=== PATIENT | male | born 1955 | race African-American/Black ===

== ENCOUNTER 2022-07-21 06:26 | Emergency (ER) | payer MEDICARE, MEDICAID ==
[~2022-07-21] VITALS: Ht 188 cm; Wt 90.0 kg
[2022-07-21 06:28] VITALS: BP 208/107
[2022-07-21 07:50] LABS: BASOPHILS % 0.7 % (0.0-2.0); EOSINOPHILS % 1.8 % (0.0-5.0); HEMATOCRIT. 33.7 % (42.0-52.0); LYMPHOCYTES % 9.5 % (20.0-50.0); MEAN CORPUSCULAR HEMOGLOBIN 24.5 pg (28.0-32.0); MEAN CORPUSCULAR VOLUME 74.9 fL (80.0-94.0); MEAN PLATELET VOLUME 7.2 fl (7.4-10.4); MONOCYTES % 10.8 % (2.0-8.0); NEUTROPHILS % 77.2 % (40.0-76.0); PLATELET 216 x1000/uL (130-400); RED BLOOD CELL COUNT 4.49 mill/uL (4.7-6.1); RED CELL DISTRIBUTION WIDTH 18.1 % (11.6-14.6)
[2022-07-21 07:54] LABS: CHLORIDE 93 mEq/L (98-107)
== END 2022-07-21 09:36 | disposition home or self-care (01) ==
LOC: ER 06:43 → CANBEDREQ 07-23 07:24
DX: B34.9 Viral infection, unspecified (principal); R79.89 Other specified abnormal findings of blood chemistry; I12.0 Hypertensive chronic kidney disease with stage 5 chronic kidney disease or end stage renal disease; R00.0 Tachycardia, unspecified; R94.31 Abnormal electrocardiogram [ECG] [EKG]; N18.6 End stage renal disease; Z99.2 Dependence on renal dialysis; Z79.899 Other long term (current) drug therapy
CPT/HCPCS: 36415; 71045; 80053; 83880; 84484; 85025; 87804; 93005; 99285

== ENCOUNTER 2024-03-19 13:23 | Emergency (ER) | payer MEDICAID ==
[~2024-03-19] VITALS: Ht 185.4 cm; Wt 60.0 kg
[2024-03-19 13:30] VITALS: O2SAT 99
[2024-03-19] MEDS ORDERED: ACETAMINOPHEN 325MG TABLET PO ONE (13:30)
[2024-03-19] MEDS: ACETAMINOPHEN 325MG TABLET PO NR (16:12)
[2024-03-19 16:13] VITALS: BP 154/70; PULSE 70; RESP 16; TEMP 36.89184; O2SAT 99
== END 2024-03-19 16:13 | disposition home or self-care (01) ==
LOC: ER 13:23
DX: M25.562 Pain in left knee (principal); I12.0 Hypertensive chronic kidney disease with stage 5 chronic kidney disease or end stage renal disease; N18.6 End stage renal disease; Z99.2 Dependence on renal dialysis; Z98.890 Other specified postprocedural states
CPT/HCPCS: 29505; 73562; 99283

== ENCOUNTER 2024-03-28 13:08 | Inpatient (IN) | payer MEDICAID, MEDICARE ==
[~2024-03-28] VITALS: Ht 190.5 cm; Wt 89.9 kg
[~2024-03-28 13:08] MED LIST: AMLO5TAB88 PO; ATEN50TA PO; CLON0.1T PO; HYDR50TA40 PO
[2024-03-28] MEDS ORDERED: VANCOMYCIN 1G PREMIX 200 ML IV SCH (13:45)
[2024-03-28] MEDS: PIPERACILLIN/TAZO 3.375G/50ML 50 ML IV SCH (14:00)
[2024-03-28 14:53] LABS: BASOPHILS % 0.9 % (0.0-2.0); DIFFERENTIAL COMMENT 0; EOSINOPHILS % 7.6 % (0.0-5.0); HEMATOCRIT. 32.3 % (42.0-52.0); HEMOGLOBIN. 10.3 g/dL (14.0-18.0); LYMPHOCYTES % 17.1 % (20.0-50.0); MEAN CORPUSCULAR HGB CONC 31.8 g/dL (31.0-37.0); MEAN CORPUSCULAR VOLUME 78.7 fL (80.0-94.0); MEAN PLATELET VOLUME 7.3 fl (7.4-10.4); MONOCYTES % 11.4 % (2.0-8.0); PLATELET 307 x1000/uL (130-400)
[2024-03-28 15:02] LABS: POTASSIUM 5.4 mEq/L (3.5-5.1)
[2024-03-28 15:04] LABS: CALCIUM 9.3 mg/dL (8.7-10.4)
[2024-03-28] MEDS ORDERED: VANCOMYCIN 1G PREMIX 200 ML IV NR (15:30)
[2024-03-28] MEDS: VANCOMYCIN 1GM PMX (XELLIA) 200 ML IV NR (16:05)
[2024-03-28 16:32] LABS: CREATININE 9.8 mg/dL (0.6-1.3)
[2024-03-28 20:45] LABS: HEPATITIS B SURFACE ANTIGEN NEGATIVE (Negative)
[2024-03-28 21:05] LABS: HEPATITIS A AB IGM NEGATIVE (Negative)
[2024-03-28 21:06] LABS: HEPATITIS B CORE AB IGM NEGATIVE (Negative); HEPATITIS C AB REACTIVE (Pos) (Negative)
[2024-03-28] MEDS ORDERED: IOHEXOL-350 100 ML BOTTLE ONE (23:39)
[2024-03-29] VITALS (15 sets, daily range): BP systolic 90–210; BP diastolic 41–116; PULSE 62–78; RESP 16–21; TEMP 35.5584–36.55848; O2SAT 97–99
[2024-03-29] MEDS: CLONIDINE 0.2MG TABLET PO PRN ×2 (02:58→22:36)
[2024-03-29 07:08] LABS: POTASSIUM 5.7 mEq/L (3.5-5.1)
[2024-03-29 07:16] LABS: CREATININE 10.5 mg/dL (0.6-1.3)
[2024-03-29 07:21] LABS: INR 1.1; PARTIAL THROMBOPLASTIN TIME 29.8 sec (23.4-31.0); PROTHROMBIN TIME 11.9 sec (9.6-11.0)
[2024-03-29 07:23] LABS: HEMATOCRIT 30.5 % (42.0-52.0); HEMOGLOBIN 9.5 g/dL (14.0-18.0); MEAN CORPUSCULAR HEMOGLOBIN 24.3 pg (28.0-32.0); MEAN CORPUSCULAR HGB CONC 31.2 g/dL (31.0-37.0); MEAN CORPUSCULAR VOLUME 77.8 fL (80.0-94.0); PLATELET 298 x1000/uL (130-400); RED BLOOD CELL COUNT 3.92 mill/uL (4.7-6.1); RED CELL DISTRIBUTION WIDTH 18.9 % (11.6-14.6); WHITE BLOOD COUNT 6.4 x1000/uL (4.5-11.0)
[2024-03-29] MEDS: EPOETIN ALFA 2,000 UNIT/ML VIAL SUBCUT SCH (21:56)
[2024-03-29] MEDS ORDERED: ONDANSETRON HCL 4MG/2ML INJ IV PRN (23:45)
[2024-03-29] MEDS ORDERED: ZOLPIDEM TARTRATE 5MG TABLET PO PRN (23:45)
[2024-03-29] MEDS ORDERED: ACETAMINOPHEN 325MG TABLET PO PRN (23:45)
[2024-03-29] MEDS ORDERED: CLONIDINE 0.1MG TABLET PO PRN (23:45)
[2024-03-30] VITALS (12 sets, daily range): BP systolic 142–172; BP diastolic 73–94; PULSE 58–97; RESP 18–20; TEMP 35.89176–36.89184; O2SAT 97–98
[2024-03-30] MEDS: HYDRALAZINE HCL 50MG TABLET PO SCH (06:19)
[2024-03-30 07:39] LABS: POTASSIUM 5.9 mEq/L (3.5-5.1)
[2024-03-30 07:40] LABS: CALCIUM 9.1 mg/dL (8.7-10.4)
[2024-03-30 08:02] LABS: CREATININE 9.1 mg/dL (0.6-1.3)
[2024-03-30 08:03] LABS: BASOPHILS % 1.7 % (0.0-2.0); DIFFERENTIAL COMMENT 0; HEMOGLOBIN. 9.3 g/dL (14.0-18.0); LYMPHOCYTES % 16.1 % (20.0-50.0); MEAN CORPUSCULAR HEMOGLOBIN 24.2 pg (28.0-32.0); MEAN CORPUSCULAR HGB CONC 31.1 g/dL (31.0-37.0); MEAN CORPUSCULAR VOLUME 77.6 fL (80.0-94.0); MEAN PLATELET VOLUME 7.4 fl (7.4-10.4); MONOCYTES % 13.5 % (2.0-8.0); NEUTROPHILS % 61.7 % (40.0-76.0); PLATELET 295 x1000/uL (130-400); RED BLOOD CELL COUNT 3.87 mill/uL (4.7-6.1); RED CELL DISTRIBUTION WIDTH 19.1 % (11.6-14.6); WHITE BLOOD COUNT 6.2 x1000/uL (4.5-11.0)
[2024-03-30] MEDS: PIPERACILLIN/TAZO 3.375G/50ML 50 ML IV SCH (08:30)
[2024-03-30] MEDS: CLONIDINE 0.1MG TABLET PO SCH (08:30)
[2024-03-30] MEDS: AMLODIPINE 5MG TABLET PO SCH (08:31)
[2024-03-30] MEDS: ATENOLOL 50 MG TABLET PO SCH (08:31)
[2024-03-30] MEDS ORDERED: ALBUTEROL (0.083%) 2.5MG/3ML NEB HHN NR (09:34)
[2024-03-30] MEDS: INSULIN REGULAR (HUMULIN R) 1000UNITS/10ML VIAL IV NR (09:49)
[2024-03-30] MEDS: SODIUM BICARBONATE 8.4% 50MEQ/50ML SYR IV NR (09:50)
[2024-03-30] MEDS: DEXTROSE 50% WATER 50ML SYRINGE IV NR (09:50)
[2024-03-30] MEDS: VANCOMYCIN 1GM PMX (XELLIA) 200 ML IV SCH (11:49)
[2024-03-30 12:25] LABS: POTASSIUM 5.1 mEq/L (3.5-5.1)
[2024-03-30] MEDS ORDERED: HEPARIN 5000 UNITS/ML VIAL ONE (12:44)
[2024-03-30] MEDS ORDERED: BUPIVACAINE HCL/PF 0.5% (5MG/ML) 10ML ONE (12:44)
[2024-03-30] MEDS ORDERED: HEPARIN SODIUM 1,000 UNIT/1ML VIAL IV ONE (12:44)
[2024-03-30] MEDS ORDERED: THROMBIN (BOVINE) 5000 UNITS/VIAL TOP ONE ×2 (12:44→15:17)
[2024-03-30] MEDS ORDERED: LIDOCAINE HCL 1% 10 MG/ML 10ML VIAL ONE (12:44)
[2024-03-30] MEDS ORDERED: IOHEXOL-300 100 ML BOTTLE ONE (12:48)
[2024-03-30] MEDS ORDERED: ETOMIDATE 2MG/ML 10ML VIAL IV ONE (13:05)
[2024-03-30] MEDS ORDERED: MIDAZOLAM HCL 2 MG/2 ML VIAL ONE (13:05)
[2024-03-30] MEDS ORDERED: ONDANSETRON HCL 4MG/2ML INJ ONE (13:05)
[2024-03-30] MEDS ORDERED: FENTANYL CITRATE/PF 50MCG/ML 2ML VIAL ONE (13:05)
[2024-03-30] MEDS ORDERED: DEXAMETHASONE 4MG/ML 1ML VIAL ONE (13:05)
[2024-03-30] MEDS ORDERED: POLYMYXIN B SULFATE 500000 UNITS/VIAL ONE (13:08)
[2024-03-30] MEDS ORDERED: PROPOFOL 200MG/20ML VIAL IV ONE (13:12)
[2024-03-30] MEDS ORDERED: FENTANYL CITRATE/PF 50MCG/ML 5ML VIAL ONE (13:52)
[2024-03-30] MEDS ORDERED: VANCOMYCIN HCL 1GM VIAL ONE (16:28)
[2024-03-30] MEDS ORDERED: DESMOPRESSIN ACETATE 4MCG/ML AMP ONE ×2 (16:43)
[2024-03-30] MEDS ORDERED: BACITRACIN 14GM TUBE TOP ONE (17:10)
[2024-03-30] MEDS ORDERED: GLYCOPYRROLATE 0.2MG/ML VIAL 5ML IV PRN (18:15)
[2024-03-30] MEDS ORDERED: MEPERIDINE HCL/PF 25MG/ML CPJ IV PRN (18:15)
[2024-03-30] MEDS ORDERED: LABETALOL 5MG/ML 4ML INJ IV PRN (18:15)
[2024-03-30] MEDS ORDERED: ONDANSETRON HCL 4MG/2ML INJ IV PRN (18:15)
[2024-03-30] MEDS ORDERED: HYDROMORPHONE HCL/PF 1MG/ML INJ IV PRN ×3 (18:15)
[2024-03-30] MEDS: HYDRALAZINE 20MG/ML VIAL IV PRN (18:57)
[2024-03-30] MEDS ORDERED: EPOETIN ALFA-EPBX 4,000 UNIT/ML VIAL SUBCUT SCH (21:00)
[2024-03-30 21:59] LABS: HEMATOCRIT 29.3 % (42.0-52.0); HEMOGLOBIN 9.5 g/dL (14.0-18.0); MEAN CORPUSCULAR HEMOGLOBIN 25.3 pg (28.0-32.0); MEAN CORPUSCULAR HGB CONC 32.3 g/dL (31.0-37.0); MEAN CORPUSCULAR VOLUME 78.5 fL (80.0-94.0); PLATELET 289 x1000/uL (130-400); RED BLOOD CELL COUNT 3.73 mill/uL (4.7-6.1); RED CELL DISTRIBUTION WIDTH 19.1 % (11.6-14.6); WHITE BLOOD COUNT 6.4 x1000/uL (4.5-11.0)
[2024-03-30 22:10] LABS: CALCIUM 8.9 mg/dL (8.7-10.4)
[2024-03-30 22:25] LABS: CREATININE 9.6 mg/dL (0.6-1.3); POTASSIUM 6.6 mEq/L (3.5-5.1)
[2024-03-31] VITALS (7 sets, daily range): BP systolic 130–169; BP diastolic 71–91; PULSE 63–98; RESP 17–20; TEMP 36.22512–36.72516; O2SAT 97–100
[2024-03-31 11:56] LABS: HEMATOCRIT 24.4 % (42.0-52.0); HEMOGLOBIN 7.8 g/dL (14.0-18.0); MEAN CORPUSCULAR HEMOGLOBIN 25.1 pg (28.0-32.0); MEAN CORPUSCULAR VOLUME 78.6 fL (80.0-94.0); PLATELET 259 x1000/uL (130-400); RED CELL DISTRIBUTION WIDTH 19.1 % (11.6-14.6); WHITE BLOOD COUNT 5.8 x1000/uL (4.5-11.0)
[2024-03-31 12:30] LABS: POTASSIUM 4.6 mEq/L (3.5-5.1)
[2024-03-31 12:32] LABS: CALCIUM 8.9 mg/dL (8.7-10.4)
[2024-03-31 13:15] LABS: CREATININE 7.1 mg/dL (0.6-1.3)
[2024-03-31] MEDS ORDERED: EPOETIN ALFA-EPBX 4,000 UNIT/ML VIAL SUBCUT SCH (21:00)
[2024-03-31] MEDS: EPOETIN ALFA-EPBX 4,000 UNIT/ML VIAL SUBCUT SCH (22:18)
[2024-03-31] MEDS: DICLOFENAC SODIUM 1% GEL 50GM TOP SCH (22:27)
[2024-04-01] VITALS (15 sets, daily range): BP systolic 130–188; BP diastolic 59–85; PULSE 55–75; RESP 15–20; TEMP 36.114–36.89184; O2SAT 96–99
[2024-04-01] MEDS: VANCOMYCIN 1 GM IV SCH (13:57)
[2024-04-01] MEDS: HEPARIN 5000 UNITS/ML VIAL SUBCUT SCH (20:41)
[2024-04-02] VITALS: BP 157/71; PULSE 62; RESP 20; TEMP 36.55848; O2SAT 98
[2024-04-02 04:00] VITALS: BP 158/117; PULSE 61; RESP 20; TEMP 36.55848; O2SAT 20
[2024-04-02 08:00] VITALS: BP 198/91; PULSE 60; RESP 18; TEMP 36.28068; O2SAT 97
[2024-04-02 10:46] LABS: DIFFERENTIAL COMMENT 0; EOSINOPHILS % 8.3 % (0.0-5.0); HEMATOCRIT. 23.4 % (42.0-52.0); HEMOGLOBIN. 7.4 g/dL (14.0-18.0); LYMPHOCYTES % 16.1 % (20.0-50.0); MEAN CORPUSCULAR HEMOGLOBIN 24.9 pg (28.0-32.0); MEAN CORPUSCULAR HGB CONC 31.7 g/dL (31.0-37.0); MEAN CORPUSCULAR VOLUME 78.5 fL (80.0-94.0); MEAN PLATELET VOLUME 7.6 fl (7.4-10.4); MONOCYTES % 10.8 % (2.0-8.0); NEUTROPHILS % 63.8 % (40.0-76.0); PLATELET 227 x1000/uL (130-400); RED BLOOD CELL COUNT 2.97 mill/uL (4.7-6.1); RED CELL DISTRIBUTION WIDTH 19.3 % (11.6-14.6); WHITE BLOOD COUNT 5.9 x1000/uL (4.5-11.0)
[2024-04-02 11:13] LABS: POTASSIUM 4.8 mEq/L (3.5-5.1)
[2024-04-02 11:15] LABS: CALCIUM 8.7 mg/dL (8.7-10.4)
[2024-04-02 11:44] LABS: CREATININE 7.7 mg/dL (0.6-1.3)
[2024-04-02 12:00] VITALS: BP 175/95; PULSE 66; RESP 18; TEMP 36.33624; O2SAT 95
[2024-04-02 16:00] VITALS: BP 151/76; PULSE 57; RESP 17; TEMP 36.33624; O2SAT 96
[2024-04-02 19:08] LABS: PHOSPHORUS 4.5 mg/dL (2.5-4.9)
[2024-04-02 20:00] VITALS: BP 154/85; PULSE 59; RESP 18; TEMP 36.50292; O2SAT 96
[2024-04-03] VITALS: BP 168/81; PULSE 58; RESP 19; TEMP 36.28068; O2SAT 95
[2024-04-03 04:00] VITALS: BP 157/87; PULSE 57; RESP 19; TEMP 36.72516; O2SAT 98
[2024-04-03 08:00] VITALS: BP 177/79; PULSE 56; RESP 18; TEMP 36.78072; O2SAT 97
[2024-04-03 09:24] LABS: BASOPHILS % 1.6 % (0.0-2.0); DIFFERENTIAL COMMENT 0; EOSINOPHILS % 10.1 % (0.0-5.0); HEMATOCRIT. 23.6 % (42.0-52.0); HEMOGLOBIN. 7.6 g/dL (14.0-18.0); LYMPHOCYTES % 17.6 % (20.0-50.0); MEAN CORPUSCULAR HEMOGLOBIN 24.9 pg (28.0-32.0); MEAN CORPUSCULAR HGB CONC 32.1 g/dL (31.0-37.0); MEAN CORPUSCULAR VOLUME 77.6 fL (80.0-94.0); MEAN PLATELET VOLUME 7.8 fl (7.4-10.4); MONOCYTES % 10.7 % (2.0-8.0); PLATELET 233 x1000/uL (130-400); RED BLOOD CELL COUNT 3.04 mill/uL (4.7-6.1); RED CELL DISTRIBUTION WIDTH 18.9 % (11.6-14.6); WHITE BLOOD COUNT 5.6 x1000/uL (4.5-11.0)
[2024-04-03 09:31] LABS: CALCIUM 9.1 mg/dL (8.7-10.4)
[2024-04-03 09:44] LABS: CREATININE 8.9 mg/dL (0.6-1.3)
[2024-04-03] MEDS: HYDRALAZINE 20MG/ML VIAL IV PRN (11:43)
[2024-04-03 12:00] VITALS: BP 180/77
[2024-04-03 16:00] VITALS: BP 153/83; PULSE 56
[2024-04-03] MEDS: AMPICILLIN SOD/SULBACTAM NA 3 G in SODIUM CHLORIDE 0.9% 100 ML IV SCH (18:01)
[2024-04-03] MEDS: SEVELAMER CARBONATE 800 MG TABLET PO SCH (18:01)
[2024-04-03 20:00] VITALS: BP 167/82; PULSE 59; RESP 19; TEMP 37.00296; O2SAT 99
[2024-04-04] VITALS (15 sets, daily range): BP systolic 142–191; BP diastolic 56–100; PULSE 53–59; RESP 15–20; TEMP 36.114–36.83628; O2SAT 96–100
[2024-04-04 11:19] LABS: CALCIUM 8.7 mg/dL (8.7-10.4); POTASSIUM 5.2 mEq/L (3.5-5.1)
[2024-04-04 12:05] LABS: CREATININE 10.4 mg/dL (0.6-1.3)
[2024-04-04] MEDS ORDERED: METR-167 MT (13:25)
[2024-04-05] VITALS: BP 185/87; PULSE 55; RESP 19; TEMP 36.61404; O2SAT 100
[2024-04-05 04:00] VITALS: BP 188/77; PULSE 56; RESP 19; TEMP 36.72516; O2SAT 100
[2024-04-05 08:00] VITALS: BP 154/77; PULSE 59; RESP 19; TEMP 37.05852; O2SAT 98
[2024-04-05 12:00] VITALS: BP 158/83; PULSE 57; RESP 20; TEMP 37.2252; O2SAT 99
[2024-04-05] MEDS: HYDROMORPHONE HCL/PF 1MG/ML INJ IV NR (14:57)
[2024-04-05] MEDS ORDERED: LIDOCAINE HCL 1% 30ML VIAL (10MG/ML) INFIL NR (15:00)
[2024-04-05 16:00] VITALS: BP 161/87; PULSE 57; RESP 20; TEMP 36.6696; O2SAT 100
[2024-04-05] MEDS: SILVER NITRATE APPLICATOR STICK TOP NR (18:12)
[2024-04-05 20:00] VITALS: BP 132/69; PULSE 57; RESP 20; TEMP 36.50292; O2SAT 100
[2024-04-06] VITALS (14 sets, daily range): BP systolic 147–189; BP diastolic 69–95; PULSE 52–63; RESP 15–20; TEMP 36.28068–37.28076; O2SAT 95–99
[2024-04-06 07:48] LABS: HEMATOCRIT 26.6 % (42.0-52.0); HEMOGLOBIN 8.5 g/dL (14.0-18.0); MEAN CORPUSCULAR HEMOGLOBIN 24.9 pg (28.0-32.0); MEAN CORPUSCULAR HGB CONC 32.1 g/dL (31.0-37.0); MEAN CORPUSCULAR VOLUME 77.5 fL (80.0-94.0); PLATELET 274 x1000/uL (130-400); RED BLOOD CELL COUNT 3.44 mill/uL (4.7-6.1); RED CELL DISTRIBUTION WIDTH 19.2 % (11.6-14.6); WHITE BLOOD COUNT 7.4 x1000/uL (4.5-11.0)
[2024-04-06 08:05] LABS: POTASSIUM 4.9 mEq/L (3.5-5.1)
[2024-04-06 08:06] LABS: CALCIUM 9.1 mg/dL (8.7-10.4)
[2024-04-06 08:14] LABS: CREATININE 9.8 mg/dL (0.6-1.3)
[2024-04-06] MEDS: SILVER SULFADIAZINE 1% CREAM 25GM TOP SCH (09:36)
[2024-04-07] VITALS: BP 171/81; PULSE 59; RESP 21; TEMP 36.16956; O2SAT 96
[2024-04-07 04:00] VITALS: BP 184/88; PULSE 59; RESP 20; TEMP 35.5584; O2SAT 100
[2024-04-07 08:00] VITALS: BP 174/73; PULSE 68; RESP 18; TEMP 36.6696; O2SAT 98
[2024-04-07 12:00] VITALS: BP 159/79; PULSE 60; RESP 18; TEMP 36.72516; O2SAT 100
[2024-04-07 16:00] VITALS: BP 157/77; PULSE 59; RESP 18; TEMP 36.3918; O2SAT 98
[2024-04-07 20:00] VITALS: BP 158/84; PULSE 60; RESP 18; TEMP 36.50292; O2SAT 97
[2024-04-08] VITALS (14 sets, daily range): BP systolic 133–183; BP diastolic 59–87; PULSE 48–61; RESP 15–20; TEMP 36.00288–36.72516; O2SAT 95–100
[2024-04-08 06:16] LABS: POTASSIUM 5.1 mEq/L (3.5-5.1)
[2024-04-08 06:17] LABS: CALCIUM 8.9 mg/dL (8.7-10.4)
[2024-04-08 06:24] LABS: CREATININE 10.9 mg/dL (0.6-1.3)
[2024-04-08 06:27] LABS: HEMOGLOBIN 7.9 g/dL (14.0-18.0); MEAN CORPUSCULAR HEMOGLOBIN 24.4 pg (28.0-32.0); MEAN CORPUSCULAR HGB CONC 31.5 g/dL (31.0-37.0); MEAN CORPUSCULAR VOLUME 77.5 fL (80.0-94.0); PLATELET 264 x1000/uL (130-400); RED BLOOD CELL COUNT 3.22 mill/uL (4.7-6.1); RED CELL DISTRIBUTION WIDTH 19.1 % (11.6-14.6); WHITE BLOOD COUNT 6.9 x1000/uL (4.5-11.0)
== END 2024-04-08 18:55 | disposition home health service (06) | DRG 252 ==
LOC: ER 13:28 → 7EST 20:51 → EDBEDREQTM 21:44 → EDBEDREQ 21:44
PROVIDERS: ADMIT Internal Medicine; ATTEND Internal Medicine
PROC: 5A1D70Z Performance of Urinary Filtration, Intermittent, Less than 6 Hours Per Day (ICD-10-PCS; 2024-03-29)
PROC: 03R Upper Arteries, Replacement (ICD-10-PCS; principal; 2024-03-30)
PROC: 3E0 Administration, Physiological Systems and Anatomical Regions, Introduction (ICD-10-PCS; 2024-03-30)
PROC: 5A1D70Z Performance of Urinary Filtration, Intermittent, Less than 6 Hours Per Day (ICD-10-PCS; 2024-03-30)
PROC: 5A1D70Z Performance of Urinary Filtration, Intermittent, Less than 6 Hours Per Day (ICD-10-PCS; 2024-04-01)
PROC: 5A1D70Z Performance of Urinary Filtration, Intermittent, Less than 6 Hours Per Day (ICD-10-PCS; 2024-04-04)
PROC: 0JBF0ZZ Excision of Left Upper Arm Subcutaneous Tissue and Fascia, Open Approach (ICD-10-PCS; 2024-04-05)
PROC: 05BY0ZZ Excision of Upper Vein, Open Approach (ICD-10-PCS; 2024-04-05)
PROC: 03BY0ZZ Excision of Upper Artery, Open Approach (ICD-10-PCS; 2024-04-05)
PROC: 5A1D70Z Performance of Urinary Filtration, Intermittent, Less than 6 Hours Per Day (ICD-10-PCS; 2024-04-06)
PROC: 5A1D70Z Performance of Urinary Filtration, Intermittent, Less than 6 Hours Per Day (ICD-10-PCS; 2024-04-08)
DX: T82.7XXA Infection and inflammatory reaction due to other cardiac and vascular devices, implants and grafts, initial encounter (principal); N18.6 End stage renal disease; L02.414 Cutaneous abscess of left upper limb; I12.0 Hypertensive chronic kidney disease with stage 5 chronic kidney disease or end stage renal disease; I72.1 Aneurysm of artery of upper extremity; Z99.2 Dependence on renal dialysis; E87.5 Hyperkalemia; D63.8 Anemia in other chronic diseases classified elsewhere; E83.39 Other disorders of phosphorus metabolism; B19.20 Unspecified viral hepatitis C without hepatic coma; B96.20 Unspecified Escherichia coli [E. coli] as the cause of diseases classified elsewhere; D50.9 Iron deficiency anemia, unspecified; E87.70 Fluid overload, unspecified; Y83.2 Surgical operation with anastomosis, bypass or graft as the cause of abnormal reaction of the patient, or of later complication, without mention of misadventure at the time of the procedure; Y84.1 Kidney dialysis as the cause of abnormal reaction of the patient, or of later complication, without mention of misadventure at the time of the procedure
CPT/HCPCS: 36415; 71045; 73206; 73560; 80048; 80202; 82962; 83605; 83735; 84100; 84132; 84145; 85025; 85027; 86705; 86709; 86850; 86900; 87070; 87075; 87076; 87077; 87186; 87340; 90935; 93005; 93970; 99285; C1893; J0295; J0360; J0885; J1100; J1171; J1644; J1815; J2250; J2405; J2543; J2597; J2704; J3010; J3370; J3490; J7050; Q9967; C1768

== ENCOUNTER 2024-06-22 18:06 | Emergency (ER) | payer MEDICAID ==
[~2024-06-22] VITALS: Ht 180.3 cm; Wt 79.0 kg
[~2024-06-22 18:06] MED LIST changes: +METR-167 MT
[2024-06-22 18:08] VITALS: BP 124/79; PULSE 102; RESP 16; TEMP 98.1; O2SAT 98
[2024-06-22] MEDS: BACITRACIN ZINC OINT UDPKT TOP ONE (18:30)
[2024-06-22] MEDS: LIDOCAINE HCL/EPINEPHRINE 1%-EPI 1:100,000 20ML VIAL INFIL ONE (18:30)
[2024-06-22] MEDS: TETANUS, DIPHTHERIA, PERTUSSIS VAC/PF 0.5ML (>10YR OLD) IM ONE (19:20)
== END 2024-06-22 21:13 | disposition home or self-care (01) ==
LOC: ER 18:06
DX: S01.81XA Laceration without foreign body of other part of head, initial encounter (principal); I12.0 Hypertensive chronic kidney disease with stage 5 chronic kidney disease or end stage renal disease; N18.6 End stage renal disease; Z99.2 Dependence on renal dialysis; Z79.899 Other long term (current) drug therapy; Z98.890 Other specified postprocedural states; W01.0XXA Fall on same level from slipping, tripping and stumbling without subsequent striking against object, initial encounter; Y93.89 Activity, other specified; Y92.89 Other specified places as the place of occurrence of the external cause; Y92.480 Sidewalk as the place of occurrence of the external cause
CPT/HCPCS: 99285; 70450; 90715; 12013; 90471; J2004

== ENCOUNTER 2024-12-05 19:51 | Emergency (ER) | payer MEDICAID ==
[~2024-12-05] VITALS: Ht 188 cm; Wt 90.0 kg
[~2024-12-05 19:51] MED LIST changes: -METR-167 MT; +PANT40TA51 PO
[2024-12-05 19:54] VITALS: O2SAT 99
[2024-12-05] MEDS ORDERED: OXYCODONE HCL/ACETAMINOPHEN 5/325MG TABLET PO ONE (20:15)
[2024-12-05] MEDS ORDERED: CLONIDINE 0.1MG TABLET PO ONE (20:15)
[2024-12-05 20:30] LABS: BASOPHILS % 1.2 % (0.0-2.0); EOSINOPHILS % 9.2 % (0.0-5.0); HEMATOCRIT. 42.2 % (42.0-52.0); HEMOGLOBIN. 13.2 g/dL (14.0-18.0); LYMPHOCYTES % 16.7 % (20.0-50.0); MEAN PLATELET VOLUME 7.0 fl (7.4-10.4); MONOCYTES % 8.7 % (2.0-8.0); NEUTROPHILS % 64.2 % (40.0-76.0); PLATELET 197 x1000/uL (130-400); RED BLOOD CELL COUNT 5.51 mill/uL (4.7-6.1); RED CELL DISTRIBUTION WIDTH 21.0 % (11.6-14.6)
[2024-12-05 20:44] LABS: UREA NITROGEN BLOOD 25.0 mg/dL (9-23)
[2024-12-05 20:52] LABS: CREATININE 6.5 mg/dL (0.6-1.3)
[2024-12-05] MEDS: CLONIDINE 0.1MG TABLET PO SCH (21:17)
[2024-12-05] MEDS: HYDRALAZINE HCL 10MG TABLET PO ONE (21:17)
[2024-12-05] MEDS: OXYCODONE HCL/ACETAMINOPHEN 5/325MG TABLET PO SCH (21:18)
[2024-12-05] MEDS ORDERED: AMLODIPINE 10MG TABLET PO ONE (22:45)
[2024-12-05] MEDS ORDERED: SENN8.6T21 MT (22:56)
[2024-12-05] MEDS: AMLODIPINE 10MG TABLET PO NR (23:19)
[2024-12-06 00:02] VITALS: BP 167/103; PULSE 72; RESP 16; TEMP 36.6; O2SAT 96
== END 2024-12-06 00:45 | disposition home or self-care (01) ==
LOC: ER 19:51
DX: K40.90 Unilateral inguinal hernia, without obstruction or gangrene, not specified as recurrent (principal); K42.9 Umbilical hernia without obstruction or gangrene; I12.0 Hypertensive chronic kidney disease with stage 5 chronic kidney disease or end stage renal disease; N18.6 End stage renal disease; Q61.3 Polycystic kidney, unspecified; Z79.899 Other long term (current) drug therapy; Z99.2 Dependence on renal dialysis
CPT/HCPCS: 36415; 74176; 80048; 83605; 85025; 99284